=== PATIENT | male | born 1950 | race Caucasian/White ===

== ENCOUNTER 2017-07-30 05:07 | Day surgery (SDC) | payer OTHER ==
[2017-07-19 14:53] VITALS: BMI 24.0
[2017-07-19 15:57] LABS: BASO % 0.9 %; BASO ABS # 0.04 K/uL (0-0.2); COMPLETE YES; HEMATOCRIT 42.5 % (42-52); IG% 0.2 %; LYMPH ABS # 1.45 K/uL (1.2-3.4); MEAN CELL VOLUME 93.2 fL (80-100); MEAN CORPUSCULAR HEMOGLOBIN 31.8 pg (25-34); MEAN CORPUSCULAR HGB CONC 34.1 g/dl (32-36); MEAN PLATELET VOLUME 9.5 fL (7.4-10.4); MONO % 9.5 %; NEUT % 49.4 %; PLATELET COUNT 193 K/uL (130-400); RED BLOOD COUNT 4.56 M/uL (4.7-6.1)
[~2017-07-30] VITALS: Ht 165.1 cm; Wt 67.7 kg
[2017-07-30 05:21] VITALS: BP 157/90; PULSE 68; TEMP 36.7; O2SAT 98; BMI 24.0
[2017-07-30 05:25] VITALS: BP 157/90; PULSE 68; TEMP 36.7; O2SAT 98; Ht 165.1 cm; Wt 67.7 kg
[2017-07-30] MEDS ORDERED: CEFAZOLIN 2000MG IV PUSH 10 ML IV SCH (06:00)
[2017-07-30] MEDS ORDERED: LACTATED RINGER'S 1000ML 1,000 ML IV SCH (06:00)
[2017-07-30] MEDS ORDERED: ONDANSETRON INJ 2 MG/ML 2 ML VIAL IV PRN ×2 (06:15→08:15)
[2017-07-30] MEDS ORDERED: EpHEDrine SULFATE INJ 50 MG/ML AMP IV PRN (06:15)
[2017-07-30] MEDS ORDERED: ATROPINE SULFATE 0.1 MG/ML 5ML SYR IV PRN (06:15)
[2017-07-30] MEDS ORDERED: PHENYLEPHRINE 100MCG/ML 5ML SYR IV PRN (06:15)
[2017-07-30] MEDS ORDERED: FENTANYL CITRATE INJ 50 MCG/1 ML 2 ML VIAL IV PRN (06:15)
[2017-07-30] MEDS ORDERED: LABETALOL HCL IV 5 MG/ML 20ML IV PRN (06:15)
[2017-07-30] MEDS ORDERED: HYDROmorphone INJ 1 MG/ML SYR IV PRN (06:15)
[2017-07-30] MEDS ORDERED: MIDAZOLAM HCL 1 MG/ML 2ML VIAL ONE ×2 (06:35→07:18)
[2017-07-30] MEDS ORDERED: ONDANSETRON INJ 2 MG/ML 2 ML VIAL ONE ×2 (06:35→07:46)
[2017-07-30] MEDS ORDERED: PROPOFOL IV EMULSION 10 MG/ML 20 ML VIAL IV ONE (06:35)
[2017-07-30] MEDS ORDERED: LIDOCAINE HCL 2% 2 ML VIAL (20MG/ML) ONE (06:35)
[2017-07-30] MEDS ORDERED: FENTANYL CITRATE INJ 50 MCG/1 ML 2 ML VIAL ONE (06:35)
[2017-07-30] MEDS ORDERED: BACITRACIN OINT 15 GM TUBE ONE (06:39)
[2017-07-30] MEDS ORDERED: LIDOCAINE HCL 1% 20 ML VIAL ONE (06:39)
[2017-07-30] MEDS ORDERED: BUPIVACAINE 0.5 % 5 MG/1 ML MPF 30ML VIAL ONE (06:39)
--- NOTE | 2017-07-30 07:03 | History & Physical Bridge Note ---
H&P Re-Evaluation Bridge Note: I have examined the patient, reviewed the History & Physical and in the interval since the performance of the History & Physical I have noted the following changes of clinical significance: No changes noted
[2017-07-30] MEDS ORDERED: GLYCOPYRROLATE INJ 0.2 MG/ML VIAL ONE (07:51)
--- NOTE | 2017-07-30 07:51 | [facility] Post Operative Brief Note ---
Immediate Operative Summary Operative Date Jul 30, 2017. Pre-Operative Diagnosis Ventral Hernia Post-Operative Diagnosis Ventral Hernia Procedure(s) Performed Open Primary Repair of Ventral Hernia Surgeon Dr. Nickerson [employer] Surgeon(s) Bereket Bethea PA-C Estimated Blood Loss 5mL Findings small ventral hernia, hernia neck size is 0.8x0.8cm, Fluids (cc crystalloids) 600ml Specimens none per surgeon Drains none Anesthesia sedation + local Complication(s) None Disposition Recovery Room / PACU
[2017-07-30] MEDS ORDERED: OXYC-57 PO (08:00)
--- NOTE | 2017-07-30 08:04 | Discharge Instructions ---
Discharge Instructions Date of Service Jul 30, 2017. Admission Reason for Admission: Ventral Hernia Discharge Discharge Diagnosis / Problem: same Discharge Goals Goal(s): Decrease discomfort, Improve function Activity Recommendations Activity Limitations: as noted below No heavy lifting over 10 pounds for 4-6 weeks No strenuous activity until cleared by surgeon No submerging incision underwater for 2 weeks (no bathing, swimming, or hot tubs ) No driving while taking narcotic pain medication or until you are pain free . Instructions / Follow-Up Instructions / Follow-Up You may shower in 3 days. Keep dressing on for 3 days and then remove. You may let shower water hit your back and wash your hair but try to keep dressing clean and dry. Keep steri strips on incision for 7 days and then you can remove them. They may fall off on their own that is okay. Walking and light activity is encouraged to prevent blood clots from forming Follow-up with Dr. Nickerson in 1-2 weeks, please call office at [phone] if you do not already have an appointment Current Hospital Diet Patient's current hospital diet: Discharge Diet Recommended Diet: Regular Diet Procedures Procedures Performed: Open Primary Repair of Ventral Hernia Pending Studies Studies pending at discharge: no Medical Emergencies . Who to Call and When: Medical Emergencies: If at any time you feel your situation is an emergency, please call 911 immediately. . Non-Emergent Contact Non-Emergency issues call your: Primary Care Provider, Surgeon Call Non-Emergent contact if: you have a fever, temperature is above 101.5, your pain is not controlled, your pain is worsening, your pain is unusual for you, wound has increased drainage, wound has increased redness, wound has increased pain . "Provider Documentation" section prepared by Ashley Bethea. . VTE Core Measure Inpt VTE Proph given/why not?: SCD's [place] Drug Monitoring Program Search Results: patient reviewed within database, no issues identified
[2017-07-30] MEDS ORDERED: ACETAMINOPHEN 325 MG TAB PO PRN (08:15)
[2017-07-30] MEDS ORDERED: MoRPHine SULFATE 2 MG/ML CARP IV PRN ×2 (08:15)
[2017-07-30] MEDS ORDERED: OXYCODONE/ACETAMINOPHEN 5-325 TAB PO PRN ×2 (08:15)
[2017-07-30] MEDS ORDERED: MoRPHine SULFATE 4 MG/ML 1 ML CARP\\VIAL IV PRN (08:15)
--- NOTE | 2017-07-30 08:16 | Anesthesiology Progress Note ---
Anesthesia Post Op Note Date & Time Jul 30, 2017 at 08:16 Vital Signs Pain Intensity: 0 Vital Signs Past 12 Hours Date Time Temp Pulse Resp B/P (MAP) Pulse Ox O2 Delivery O2 Flow Rate FiO2 07/30/17 07:58 36.5 79 17 128/81 98 Oxymask 10 07/30/17 05:25 36.7 68 20 157/90 (112) 98 Room Air 07/30/17 05:21 36.7 68 20 157/90 (112) 98 Room Air Notes Mental Status: alert / awake / arousable, participated in evaluation Pt Amnestic to Procedure: Yes Nausea / Vomiting: adequately controlled Pain: adequately controlled Airway Patency, RR, SpO2: stable & adequate BP & HR: stable & adequate Hydration State: stable & adequate Anesthetic Complications: no major complications apparent
[2017-07-30 08:25] VITALS: BP 134/85; PULSE 80; TEMP 36.5; O2SAT 96
[2017-07-30 08:54] VITALS: BP 128/83; PULSE 66; TEMP 36.6; O2SAT 98
[2017-07-30 09:25] VITALS: BP 136/86; PULSE 60; TEMP 36.6; O2SAT 98
[2017-07-30 09:45] VITALS: BP 136/74; PULSE 59; TEMP 36.4; O2SAT 99
--- NOTE | 2017-07-30 10:43 | OPERATIVE REPORT ---
DATE OF OPERATION: 07/30/2017 PREOPERATIVE DIAGNOSIS: Ventral hernia. POSTOPERATIVE DIAGNOSIS: Same. PROCEDURE: Open primary repair of ventral hernia. SURGEON: Margarita Nickerson MD. ANESTHESIA: Conscious sedation plus local. ESTIMATED BLOOD LOSS: About 5 mL. IV FLUIDS: 600 mL. FINDINGS: Small ventral hernia. Hernia neck size is about 0.8 x 0.8 cm. COMPLICATIONS: None. INDICATIONS FOR THE PROCEDURE: This is a 67-year-old gentleman who presented with symptomatic ventral hernia in the epigastric area. The patient will require open repair of ventral hernia, possible mesh. I did talk to the patient about the benefit and risk, alternate procedure. I indicated the risks may include but not limited such as bleeding, infection, hernia recurrence, injury to bowel. The patient understands and he signed informed consent, I answered all questions. DETAILS OF PROCEDURE: We brought the patient to the OR, put the patient in the supine position. The patient received SCD on bilateral legs to prevent DVT. Also, the patient received 2 grams Ancef IV for prophylactic antibiotic. The patient received conscious sedation by the anesthesiology. The patient's abdomen was prepped and draped in routine sterile fashion. After a timeout, I injected local anesthesia around the incision site, epigastric area, by using 1% lidocaine mixed with 0.5% Marcaine. Then I made about a 3 cm incision just above the ventral hernia. I opened the skin and opened the subcutaneous layer and then we found the patient has hernia sac fat tissue and we successfully reduced the hernia sac content fat tissue back to his abdominal cavity. Then we found the patient had a ventral hernia. Hernia neck size about 0.8 x 0.8 cm. It was small, we decided to use #1 Ethibond to primarily close the ventral hernia, [id number] x2. I rechecked, no more hernia and hemostasis obtained. I used 2-0 Vicryl to close subcutaneous layer continuous running. Closed skin by using 4-0 Vicryl and put the dressing on. The patient tolerated the procedure well. All instrument, needle and sponge count were correct x2 at the end of case. The patient transferred to recovery room in stable condition. I attest to the content of the Intraoperative Record and any orders documented therein. Any exceptions are noted below. CHARLEE
[2017-07-31] MEDS ORDERED: CEFAZOLIN SOD 2000MG/10 ML IV PUSH IV ONE (06:00)
== END 2017-07-30 09:48 | disposition home or self-care (01) ==
LOC: C.ACU 05:07
PROVIDERS: ATTEND Surgery
DX: K43.9 Ventral hernia without obstruction or gangrene (principal); I10 Essential (primary) hypertension; E78.5 Hyperlipidemia, unspecified; I48.0 Paroxysmal atrial fibrillation; Z82.49 Family history of ischemic heart disease and other diseases of the circulatory system; Z87.891 Personal history of nicotine dependence